=== PATIENT | female | born 1970 | race Caucasian/White ===

== ENCOUNTER 2022-12-28 08:12 | Outpatient (CLI) | payer OTHER, SELFPAY ==
--- NOTE | 2022-12-28 08:15 | CRLHL7_ITS ---
For Patients: As a result of the Century Cures Act, medical imaging exams and procedure reports are released immediately into your electronic medical record. You may view this report before your referring provider. If you have questions, please contact your health care provider. BILATERAL SCREENING MAMMOGRAM WITH COMPUTER-AIDED DETECTION AND TOMOSYNTHESIS TECHNIQUE: CC and MLO views were obtained. These mammographic images have been obtained using full-field digital technique. These mammographic images were interpreted with the benefit of computer-aided detection. Breast Tomosynthesis was used in this interpretation. COMPARISON FILM: 11/23/21, 11/20/20, 09/03/19. FINDINGS: The breasts are extremely dense, which lowers the sensitivity of mammography IMPRESSION: There is no radiographic evidence for malignancy. ASSESSMENT: BI-RADS Category 1: Negative RECOMMENDATION: Routine screening mammogram in 1 year. A lay language report of this examination will be provided to the patient. Jhony Lezama M.D. Diagnostic Radiologist [email or web address] [place]/Dictated by: Jhony Lezama MD @ 12/28/2022 12:07:00 PM (Electronically Signed)
== END 2022-12-28 08:13 | disposition home or self-care (01) ==
LOC: MAMMO 08:13
PROVIDERS: PCP Internal Medicine; Visit Provider Internal Medicine
DX: Z12.31 Encounter for screening mammogram for malignant neoplasm of breast (principal); R92.2 Inconclusive mammogram
CPT/HCPCS: 77063; 77067

== ENCOUNTER 2023-11-10 07:50 | Outpatient (CLI) | payer OTHER, SELFPAY | END 2023-11-10 07:51 | disposition home or self-care (01) | LOC: NFLDREF 11-11 05:01 | PROVIDERS: PCP Internal Medicine; Referring Provider Internal Medicine; Visit Provider Internal Medicine | DX: Z13.1 Encounter for screening for diabetes mellitus (principal); Z13.6 Encounter for screening for cardiovascular disorders | CPT/HCPCS: 80061; 82947 ==

== ENCOUNTER 2024-01-10 12:44 | Outpatient (CLI) | payer OTHER, SELFPAY ==
--- NOTE | 2024-01-10 13:00 | MM_ITS ---
Patient: SHANTE WASHINGTON Facility:?[facility] Patient ID:?[id number] Site Patient ID:?[id number]. Site :?1970 Study:?XRay-Breast Bilateral 3D W/CAD-01/10/2024 1:04:26 PM Ordering Physician:Malaika Weiss Final Report: BILATERAL SCREENING MAMMOGRAM WITH COMPUTER-AIDED DETECTION AND TOMOSYNTHESIS TECHNIQUE: CC and MLO views were obtained. These mammographic images have been obtained using full-field digital technique. These mammographic images were interpreted with the benefit of computer-aided detection. Breast Tomosynthesis was used in this interpretation. COMPARISON FILM: 12/28/22, 11/23/21, 11/20/20. FINDINGS: The breasts are heterogeneously dense, which may obscure small masses. IMPRESSION: There is no radiographic evidence for malignancy. ASSESSMENT: BI-RADS Category 1: Negative RECOMMENDATION: Routine screening mammogram in 1 year. A lay language report of this examination will be provided to the patient. Jhony Lezama M.D. Diagnostic Radiologist [email or web address] DSM/sp R& Transcribed: 5:17 p.m. SP/Dictated by: Jhony Lezama MD @ 01/19/2024 10:25:00 AM Signed by:Jose C Lezama MD @01/19/2024 8:24:31 PM (Electronic Signature)
== END 2024-01-10 12:45 | disposition home or self-care (01) ==
LOC: MAMMO 12:45
PROVIDERS: PCP Internal Medicine; Visit Provider Internal Medicine
DX: Z12.31 Encounter for screening mammogram for malignant neoplasm of breast (principal); R92.2 Inconclusive mammogram
CPT/HCPCS: 77063; 77067

== ENCOUNTER 2024-01-26 11:12 | Outpatient (CLI) | payer OTHER, SELFPAY | END 2024-01-26 11:13 | disposition home or self-care (01) | LOC: NFLDREF 11:14 | PROVIDERS: PCP Internal Medicine; Visit Provider Internal Medicine | DX: R19.5 Other fecal abnormalities (principal) | CPT/HCPCS: 80053 ==

== ENCOUNTER 2024-02-02 07:34 | Outpatient (CLI) | payer OTHER, SELFPAY ==
--- NOTE | 2024-02-02 08:00 | CT_ITS ---
Patient: SHANTE WASHINGTON Facility:?[facility] Patient ID:?[id number] Site Patient ID:?[id number]. Site :?1970 Study:?CT-Abdomen/Pelvis 72CC ISOVUE 370 AND WATER PREP-02/02/2024 8:50:26 AM Ordering Physician:?DR. HERNANDEZ Final Report: INDICATION: Left lower quadrant pain and twinges near hysterectomy incision. TECHNIQUE: CT abdomen and pelvis with contrast. 72 mL of Isovue 370 was administered intravenously. COMPARISON: None. FINDINGS: Lower chest: Unremarkable. Liver: Tiny hepatic cysts. No intrahepatic duct dilatation. No suspicious lesions. Gallbladder and bile ducts: No stones or inflammation. No biliary dilatation. Pancreas: Unremarkable. No mass or inflammation. Spleen: Normal in size. No masses. Adrenal glands: Normal in size. No nodules. Kidneys: Normal in size. No suspicious masses, stones, or hydronephrosis. GI tract: Unremarkable. Normal in caliber. No sign of mass or inflammation. Normal appendix. Vasculature: Unremarkable. Lymph nodes: No lymphadenopathy. Abdominal wall/Omentum/Peritoneum: No abdominal wall mass, inflammation or hernia. No free intraperitoneal air or free fluid. Pelvis: Status post hysterectomy. Unremarkable urinary bladder. No pelvic mass, lymphadenopathy or inflammatory abnormality. Bones: Unremarkable for age. IMPRESSION: 1. Status post hysterectomy. 2. No acute abnormality. Please note that all CT scans at this facility use dose modulation, iterative reconstruction, and/or weight-based dosing when appropriate to reduce radiation dose to as low as reasonably achievable. Dictated by Gerardo Mathur MD @ 02/02/2024 10:29:27 AM Signed by:?Gerardo Mathur MD @02/02/2024 10:29:27 AM (Electronic Signature)
== END 2024-02-02 07:35 | disposition home or self-care (01) ==
LOC: CT 07:35
PROVIDERS: PCP Internal Medicine; Visit Provider Internal Medicine
DX: R10.32 Left lower quadrant pain (principal)
CPT/HCPCS: 74177; Q9967

== ENCOUNTER 2024-12-14 07:55 | Outpatient (CLI) | payer OTHER, SELFPAY | END 2024-12-14 07:56 | disposition home or self-care (01) | LOC: NFLDREF 12-17 02:15 | PROVIDERS: PCP Internal Medicine; Referring Provider Internal Medicine; Visit Provider Internal Medicine | DX: E78.5 Hyperlipidemia, unspecified (principal) | CPT/HCPCS: 80061 ==

== ENCOUNTER 2025-01-22 16:02 | Outpatient (CLI) | payer OTHER, SELFPAY ==
--- NOTE | 2025-01-22 16:20 | CRLHL7_ITS ---
For Patients: As a result of the Century Cures Act, medical imaging exams and procedure reports are released immediately into your electronic medical record. You may view this report before your referring provider. If you have questions, please contact your health care provider. INDICATION: 3D Screening Mammogram, asymptomatic 54F COMPARISON: 01/10/24, 12/28/22, 11/23/21 TECHNIQUE: CC and MLO views were obtained. These mammographic images have been obtained using full-field digital technique. These mammographic images were interpreted with the benefit of computer aided detection and tomosynthesis. BREAST COMPOSITION: The breasts are heterogeneously dense, which may obscure small masses. FINDINGS: No suspicious findings. ASSESSMENT: BI-RADS 1 Negative RECOMMENDATION: Annual screening mammogram. A lay language report of this examination will be provided to the patient. Dictated by: Jhony Lezama MD @ 01/24/2025 10:02:36 (Electronically Signed)
== END 2025-01-22 16:03 | disposition home or self-care (01) ==
LOC: MAMMO 16:03
PROVIDERS: PCP Internal Medicine; Visit Provider Internal Medicine
DX: Z12.31 Encounter for screening mammogram for malignant neoplasm of breast (principal); R92.333 Mammographic heterogeneous density, bilateral breasts
CPT/HCPCS: 77063; 77067